=== PATIENT | female | born 1970 | race Caucasian/White ===

== ENCOUNTER 2017-06-22 19:30 | Emergency (ER) | payer OTHER ==
[2017-06-22] MEDS: LORAZEPAM 2 MG INJ IV (20:37)
[2017-06-22] MEDS: SOD CHLORIDE 0.9% 1,000 ML IV (20:41)
[2017-06-22 20:46] LABS: ADD MAN DIFF? NO
[2017-06-22 20:47] LABS: BASOPHIL # 0.1 10^3/ul (0.0-0.1); BASOPHILS % 0.6 % (0.0-2.0); EOSINOPHILS # 0.5 10^3/ul (0.0-0.5); EOSINOPHILS % 5.3 % (0.0-7.0); HEMATOCRIT 39.6 % (37.0-47.0); HEMOGLOBIN 13.9 g/dl (12.0-16.0); LYMPHOCYTES # 2.1 10^3/ul (0.8-2.9); LYMPHOCYTES % 24.3 % (15.0-51.0); MEAN CORPUSCULAR HEMOGLOBIN 32.7 pg (29.0-33.0); MEAN CORPUSCULAR HGB CONC 35.1 g/dl (32.0-37.0); MEAN CORPUSCULAR VOLUME 93.2 fl (82.0-101.0); MEAN PLATELET VOLUME 10.6 fl (7.4-10.4); MONOCYTE # 0.8 10^3/ul (0.3-0.9); MONOCYTES % 8.8 % (0.0-11.0); NEUTROPHIL # 5.2 10^3/ul (1.6-7.5); NEUTROPHILS % 60.6 % (39.0-77.0); PLATELET COUNT 229 10^3/UL (140-415); RED BLOOD COUNT 4.25 10^6/ul (4.20-5.40); RED CELL DISTRIBUTION WIDTH 12.4 % (11.5-14.5)
[2017-06-22 20:47] LABS: WHITE BLOOD COUNT 8.6 10^3/ul (4.8-10.8)
[2017-06-22 21:14] LABS: ANION GAP 16 (8-16); BLOOD UREA NITROGEN 14 mg/dl (7-20); CALCIUM 9.5 mg/dl (8.4-10.2); CARBON DIOXIDE 27 mmol/L (21-31); CHLORIDE 103 mmol/L (97-110); CREATININE 0.76 mg/dl (0.44-1.00); GLUCOSE 85 mg/dl (70-220); MAGNESIUM 1.6 mg/dl (1.7-2.5); POTASSIUM 3.8 mmol/L (3.5-5.1); SODIUM 142 mmol/L (135-144)
[2017-06-22 21:26] LABS: TROPONIN-I < 0.012 ng/ml (0.00-0.12)
[2017-06-22 21:52] LABS: FREE THYROXINE INDEX (Calc) 2.95 ug/ml (0.65-3.89); T3 UPTAKE 35.5 % (23.5-40.5); T4 (THYROXINE) 8.3 ug/dl (5.5-11.0)
[2017-06-22] MEDS: MAGNESIUM CHLORIDE (SR) 64 MG TAB PO (22:54)
== END 2017-06-22 22:57 | disposition home or self-care (01) ==
LOC: E/R 19:30
DX: R00.1 Bradycardia, unspecified (principal); F41.9 Anxiety disorder, unspecified; E83.42 Hypomagnesemia; R40.2142 Coma scale, eyes open, spontaneous, at arrival to emergency department; R40.2252 Coma scale, best verbal response, oriented, at arrival to emergency department; R40.2362 Coma scale, best motor response, obeys commands, at arrival to emergency department
CPT/HCPCS: 36415; 71045; 80048; 81025; 83735; 84436; 84479; 84484; 85025; 93005; 96374; 99285-25